=== PATIENT | female | born 1990 | race Caucasian/White ===

== ENCOUNTER → 2017-07-20 | Emergency (ER) | payer MEDICAID ==
[~2017-07-20] VITALS: Ht 162.6 cm; Wt 92.8 kg
[~2017-07-20] MED LIST: ONDA8TAB9 PO; succinylcholine 20mg/ml inj IV ONE
[2017-07-20 15:00] VITALS: BP 142/71
== END | disposition home or self-care (01) ==
LOC: ER 14:54
DX: L03.115 Cellulitis of right lower limb (principal); J45.909 Unspecified asthma, uncomplicated; Z79.899 Other long term (current) drug therapy
CPT/HCPCS: 99281; J0330